=== PATIENT | male | born 2000 | race Caucasian/White ===

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

== ENCOUNTER 2020-05-03 17:15 | Emergency (ER) | payer SELFPAY ==
[2020-05-03] MEDS ORDERED: Meclizine HCl 25 MG TAB ONE (18:16)
== END 2020-05-03 18:18 | disposition home or self-care (01) ==
LOC: BURERS 17:15
DX: H83.09 Labyrinthitis, unspecified ear (principal); R06.4 Hyperventilation
CPT/HCPCS: 99283